=== PATIENT | female | born 1965 | race Caucasian/White ===

== ENCOUNTER 2017-06-18 06:40 | Day surgery (SDC) | payer OTHER ==
[2017-06-18 07:04] LABS: ADD MAN DIFF? NO
[2017-06-18 07:12] LABS: BASOPHILS % 0.5 % (0.0-2.0); EOSINOPHILS # 0.4 10^3/ul (0.0-0.5); EOSINOPHILS % 6.1 % (0.0-7.0); HEMATOCRIT 40.8 % (37.0-47.0); LYMPHOCYTES # 1.7 10^3/ul (0.8-2.9); MEAN CORPUSCULAR HEMOGLOBIN 28.6 pg (29.0-33.0); MEAN CORPUSCULAR HGB CONC 34.3 g/dl (32.0-37.0); MEAN CORPUSCULAR VOLUME 83.3 fl (82.0-101.0); MEAN PLATELET VOLUME 10.2 fl (7.4-10.4); MONOCYTE # 0.4 10^3/ul (0.3-0.9); MONOCYTES % 5.6 % (0.0-11.0); NEUTROPHIL # 3.9 10^3/ul (1.6-7.5); NEUTROPHILS % 60.6 % (39.0-77.0); PLATELET COUNT 343 10^3/UL (140-415); RED CELL DISTRIBUTION WIDTH 13.1 % (11.5-14.5)
[2017-06-18 07:12] LABS: WHITE BLOOD COUNT 6.4 10^3/ul (4.8-10.8)
[2017-06-18 07:32] LABS: ALANINE AMINOTRANSFERASE 28 IU/L (13-69); ALBUMIN 4.3 g/dl (3.3-4.9); ALBUMIN/GLOBULIN RATIO 1.26; ALKALINE PHOSPHATASE 101 IU/L (42-121); ANION GAP 14 (8-16); ASPARTATE AMINO TRANSFERASE 22 IU/L (15-46); BILIRUBIN,INDIRECT 0.8 mg/dl (0-1.1); BILIRUBIN,TOTAL 0.8 mg/dl (0.2-1.3); CARBON DIOXIDE 29 mmol/L (21-31); CHLORIDE 106 mmol/L (97-110); GLUCOSE 98 mg/dl (70-220); TOTAL PROTEIN 7.7 g/dl (6.1-8.1)
[2017-06-18 07:34] LABS: BLOOD UREA NITROGEN 12 mg/dl (7-20); CALCIUM 9.5 mg/dl (8.4-10.2); CREATININE 0.57 mg/dl (0.44-1.00); POTASSIUM 4.2 mmol/L (3.5-5.1); SODIUM 145 mmol/L (135-144)
[2017-06-18 07:37] LABS: PROTIME 13.3 Sec (11.9-14.9)
[2017-06-18] MEDS ORDERED: METOCLOPRAMIDE 10 MG INJ (07:37)
[2017-06-18] MEDS ORDERED: MIDAZOLAM 1 MG/ML 2 ML INJ (07:37)
[2017-06-18] MEDS ORDERED: PROPOFOL 20 ML (07:37)
[2017-06-18] MEDS ORDERED: FENTAnyl 50 MCG/ML VIAL (07:37)
[2017-06-18 07:38] LABS: PARTIAL THROMBOPLASTIN TIME 30.4 Sec (25.0-35.0)
[2017-06-18] MEDS ORDERED: CEFAZOLIN 1 GM INJ (07:38)
[2017-06-18] MEDS ORDERED: ONDANSETRON 4 MG INJ ×2 (07:38→08:52)
[2017-06-18] MEDS ORDERED: EPHEDrine SULFATE 50 MG/5 ML SYG (08:10)
[2017-06-18 08:18] LABS: ADD UMIC YES; UR ASCORBIC ACID NEGATIVE (NEGATIVE); UR BILIRUBIN (Dip) NEGATIVE (NEGATIVE); UR BLOOD (Dip) NEGATIVE (NEGATIVE); UR CLARITY CLEAR (CLEAR); UR COLOR STRAW (YELLOW); UR GLUCOSE (Dip) NEGATIVE (NEGATIVE); UR KETONES (Dip) NEGATIVE (NEGATIVE); UR LEUKOCYTE ESTERASE (Dip) TRACE Leu/ul (NEGATIVE); UR NITRITE (Dip) NEGATIVE (NEGATIVE); UR RBC 8 /HPF (0-5); UR SPECIFIC GRAVITY (Dip) 1.005 (1.003-1.030); UR TOTAL PROTEIN (Dip) NEGATIVE (NEGATIVE); UR UROBILINOGEN (Dip) NEGATIVE (NEGATIVE); UR WBC 7 /HPF (0-5)
[2017-06-18] MEDS ORDERED: ONDANSETRON 4 MG INJ IV (09:30)
[2017-06-18] MEDS ORDERED: OXYCODONE/ACETAMINOPHEN (5/325) TAB PO ×2 (09:30)
[2017-06-18] MEDS ORDERED: HYDROmorphONE (0.2 MG/ML) 10ML SYG IV (09:30)
[2017-06-18] MEDS ORDERED: HYDROCODONE/APAP (5/325) TAB PO (09:30)
[2017-06-18] MEDS: HYDROmorphONE (0.2 MG/ML) 10ML SYG IV ×2 (09:32→09:44)
[2017-06-18] MEDS: ONDANSETRON 4 MG INJ IV (10:01)
== END 2017-06-18 11:20 | disposition home or self-care (01) ==
LOC: SDS 06:40
DX: N20.0 Calculus of kidney (principal)
CPT/HCPCS: 52356; 80053; 81001; 84703; 85025; 85610; 85730; 87086

== ENCOUNTER 2017-09-09 10:16 | Day surgery (SDC) | payer OTHER ==
[~2017-09-09 10:16] MED LIST: CIPRO 400 MG/200 ML D5W IVPB
[2017-09-09] MEDS ORDERED: ONDANSETRON 4 MG INJ (13:10)
[2017-09-09] MEDS ORDERED: FENTAnyl 50 MCG/ML VIAL (13:10)
[2017-09-09] MEDS ORDERED: PROPOFOL 20 ML (13:10)
[2017-09-09] MEDS ORDERED: METOCLOPRAMIDE 10 MG INJ (13:10)
[2017-09-09] MEDS ORDERED: ACETAMINOPHEN 1000MG/100ML IV 100 ML (13:21)
[2017-09-09] MEDS ORDERED: EPHEDrine 25 MG/5 ML SYG (15:06)
[2017-09-09] MEDS ORDERED: ONDANSETRON 4 MG INJ IV (15:30)
[2017-09-09] MEDS ORDERED: MEPERIDINE 25 MG INJ IV (15:30)
[2017-09-09] MEDS ORDERED: DIPHENHYDRAMINE 50 MG INJ IV (15:30)
[2017-09-09] MEDS ORDERED: HYDROmorphONE 1 MG/5 ML IV SYRINGE IV ×2 (15:30)
[2017-09-09] MEDS: HYDROmorphONE 1 MG/5 ML IV SYRINGE IV (16:03)
[2017-09-09] MEDS: HYDROCODONE/APAP (5/325) TAB PO ×2 (16:53→16:55)
== END 2017-09-09 18:05 | disposition home or self-care (01) ==
LOC: SDS 10:16
DX: N20.1 Calculus of ureter (principal)
CPT/HCPCS: 52356; 74018; 74430; 84703; 87086; 88300